=== PATIENT | male | born 1980 | race Two or more races ===

== ENCOUNTER 2022-09-27 14:15 | Emergency (ER) | payer MEDICAID, SELFPAY ==
--- NOTE | ~2022-09-27 | XR_ITS ---
EXAMINATION: XR LUMBOSACRAL SPINE CLINICAL INFORMATION: Lower back pain COMPARISON: None available. TECHNIQUE: Three views of the lumbosacral spine. FINDINGS: There is normal lumbar lordosis. The vertebral heights and alignment is normal. Is mild loss of L4-L5 and L5-S1 disc levels. No visible acute fracture, dislocation or lytic process seen. SI joints and hip joints are symmetrical and normal. The paravertebral soft tissues are normal. XR/XR lumbar spine 2-3V IMPRESSION: Mild degenerative disc changes L4-L5 and L5-S1 disc levels.
[2022-09-27 14:55] VITALS: BP 107/48; PULSE 70; RESP 18; TEMP 36.2; O2SAT 97; BMI 23.5
--- NOTE | 2022-09-27 14:59 | ED_ITS ---
HPI - General Adult General Chief complaint: Back Pain/Injury Stated complaint: Back pain Time Seen by Provider: 09/27/22 16:25 Source: patient Mode of arrival: ambulatory Limitations: no limitations History of Present Illness HPI narrative: 41 yold healthy male presents to the ED for back after coughing hard and hearing three cracks in his back. patient denies any trauma, fever, chills, urinary/bowel incontiencne, abdominal pain, nausea, vomitting, paralysis of lower extremities, or tingling in lower extremites. Patient denies any pmh of IV drug use or HIV/HEB Related Data Previous Rx's Medication Instructions Recorded cyclobenzaprine 10 mg tablet 10 mg PO BEDTIME PRN muscle spasm 09/27/22 7 days #7 tabs naproxen 500 mg tablet 500 mg PO BID PRN pain 7 days #14 09/27/22 tabs prednisone 20 mg tablet 40 mg PO DAILY 5 days #10 tabs 09/27/22 Allergies Allergy/AdvReac Type Severity Reaction Status Date / Time No Known Allergies Allergy Verified 09/27/22 14:54 Review of Systems Review of Systems: Back pain Yes all other systems are reviewed and are negative [facility] Social History Social History Advance Directives: No Advance Directives Information Provided: Yes Physical Exam ED Vital Signs: Vital Signs - 24 hr 09/27/22 14:55 Temperature 97.2 F Pulse Rate 70 Respiratory Rate 18 Blood Pressure 107/48 L Pulse Oximetry 97 Oxygen Delivery Method Room Air BMI result Body Mass Index 23.5 Const General: cooperative, healthy appearing, comfortable, no acute distress, well developed, alert, awake and Physically active Orientation/consciousness: oriented to person, oriented to place, oriented to time and patient oriented x3 HENMT Head: Yes normal to inspection, Yes No palpable skull fracture present, Yes normocephalic, Yes atraumatic and No abrasion Eyes General: appearance normal, both eyes and all related structures Neck Neck: Yes normal visual inspection, Yes full ROM, Yes no lymphadenopathy, Yes no meningeal signs, Yes trachea midline, Yes supple, No anterior neck swelling and No tender Chest Chest palpation & inspection: normal inspection of the chest and normal palpation of entire chest wall Resp Effort & Inspection: normal respiratory effort and able to speak in complete sentences Auscultation: clear to auscultation bilaterally Cardio Jugular venous distension: no JVD Heart sounds: S1 normal heart sound present and S2 normal heart sound present GI Inspection: Yes normal to inspection and No abdominal wall ecchymosis Palpation (GI): Soft to palpation, not firm, nontender, no guarding and not rigid General: No CVA tenderness and Yes no CVA tenderness Back/Spine/Pelvis Back: no CVA tenderness, No CVA tenderness and back tenderness (lumbar spine tenderness on palpation) Skin General skin exam: no rashes or lesions noted, elasticity normal and turgor normal Neuro General: oriented to person, oriented to place, oriented to time, patient oriented x3, gait normal, tone normal, moves all extremities, Normal light touch and pain sensation, no meningeal signs, no focal motor deficits, CN's II-XI intact bilaterally and normal sensation to monofilament Extrem General: Yes normal to inspection and Yes full ROM Psych Appearance: grossly normal, well kempt and not disheveled Course Course Course Narrative: RME: 41 yold male presents to the ED for back pain for 4 days. patient states 4 days he coughed hard and hear three cracks in his lower back and ever since has had pain. Patient denies any urinary symptosm, or urinary/bowel incontinence. Medical Decision Making Medical Decision Making [facility] Narrative: 41 yold male presents to the ED for back pain after coughing hard once and hearing crack in spine. patient denies any urinay/bowel incontinence, abdominal pain, or symptoms. patient deenis any drug IV history use or HIV/EHp C Differential Diagnosis Differential Diagnoses: The differential diagnosis associated with the presentation includes (Spinal fracture, cauda equina, spinal epidural abscess,) Admission/Observation Consideration of admission/observation: Escalation of care including admission/observation considered Independent Interpretation I performed an independent interpretation of an: Plain X-Ray Radiology Impression Discussion of test interpretation with radiology: I have reviewed the radiologist's reading. External Record Review External record reviewed: Other (Prior ED visit) Prescription Management I considered prescription management with: Pain Medication Discharge Plan Discharge Clinical Impression: Lumbar radiculopathy Patient Disposition: Home, Self-Care Instructions: Lumbar Radiculopathy (ED) Additional Instructions: Please follow-up with your primary care provider. Return to ED for any worsening back pain, abdominal pain, nausea, vomiting, flank pain, fever, chills, dysuria, hematuria, urinary/bowel incontinence, or any other concerning symptoms. [address] [address] XRay Report Signed Patient: Tam Castro MR#: [id number] : 1980 Acct:[id number] Age/Sex: 41 / M ADM Date: 09/27/22 Loc: HO.ED Attending Dr: Ordering Physician: Yohan Ray Date of Service: 09/27/22 Procedure(s): XR lumbar spine 2-3V Accession Number(s): [id number] cc: Yohan Ray~ EXAMINATION: XR LUMBOSACRAL SPINE CLINICAL INFORMATION: Lower back pain COMPARISON: None available. TECHNIQUE: Three views of the lumbosacral spine. FINDINGS: There is normal lumbar lordosis. The vertebral heights and alignment is normal. Is mild loss of L4-L5 and L5-S1 disc levels. No visible acute fracture, dislocation or lytic process seen. SI joints and hip joints are symmetrical and normal. The paravertebral soft tissues are normal. XR/XR lumbar spine 2-3V IMPRESSION: Mild degenerative disc changes L4-L5 and L5-S1 disc levels. Dictated By: Jacobo Cesar MD Signed By: <Electronically signed by Jacobo Cesar MD in OV> 09/27/22 1526 DD/ 1510 TD/TT:? Implementation Coordinator: SIMON Prescriptions: New naproxen 500 mg tablet 500 mg PO BID PRN (Reason: pain) 7 Days Qty: 14 0RF prednisone 20 mg tablet 40 mg PO DAILY 5 Days Qty: 10 0RF cyclobenzaprine 10 mg tablet 10 mg PO BEDTIME PRN (Reason: muscle spasm) 7 Days Qty: 7 0RF Stand Alone Forms: Work/School Release Interventions: ED Discharge Assessment Last Done: 09/27/22 16:36 Discharge Date/Time: 09/27/22 16:37 Print Language: Kinyarwanda
== END 2022-09-27 16:37 | disposition home or self-care (01) ==
LOC: HO.ED 16:35
PROVIDERS: Emergency Provider Internal Medicine
DX: M54.16 Radiculopathy, lumbar region (principal); M54.50 Low back pain, unspecified
CPT/HCPCS: 72100; 99282; 99283